=== PATIENT | male | born 1990 | race Caucasian/White ===

== ENCOUNTER 2016-12-19 18:12 | Emergency (ER) | payer MEDICAID, OTHER ==
[2016-12-19 18:32] VITALS: BP 127/76
[2016-12-19] MEDS ORDERED: Tetan/Diph/Pertus SYR(Tdap)* 0.5 ML SYR(BOOSTRIX) use SYR IM ONE (19:03)
--- NOTE | 2016-12-19 19:19 | UC ---
Skin Complaint HPI - HPI Summary HPI Summary: 26 year old male with wrist injury . PUNCTURE WOUND LEFT WRIST AND ABRASION LEFT LOWER BACK LAST NIGHT APPROX 2:30 AM FROM WHAT MAY HAVE BEEN A NAIL WHILE CLIMBING UP A WALL. PT STATES HE WAS SUSPENDED FOR A TIME BY HIS LEFT WRIST WHEN IT WAS SNAGGED. LAST TETANUS 2009. He was drinking at the time and not sure if any nail still present. Now with wrist pain and swelling with redness. Pain in the wrist with movement. No numbness. No weakness. No wrist pain. [ End ] - History of Current Complaint Chief Complaint: UCWounds Time Seen by Provider: 12/19/16 18:51 Stated Complaint: PUNCTURE WOUND WRIST Hx Obtained From: Patient Onset/Duration: Sudden Onset Timing: Constant Onset Severity: Moderate Current Severity: Mild Location: Diffuse Character: Swelling, Redness Aggravating Factor(s): Nothing Alleviating Factor(s): Nothing Associated Signs & Symptoms: Positive: Negative Related History: Trauma - Allergy/Home Medications Allergies/Adverse Reactions: Allergies Allergy/AdvReac Type Severity Reaction Status Date / Time No Known Allergies Allergy Verified 12/19/16 18:32 Review of Systems Constitutional: Negative Skin: Negative, Other - redness and pain in the wrist and on the left lower back Eyes: Negative ENT: Negative Respiratory: Negative Cardiovascular: Negative Gastrointestinal: Negative Genitourinary: Negative Motor: Negative Neurovascular: Negative Musculoskeletal: Negative Neurological: Negative Psychological: Negative Is Patient Immunocompromised?: No All Other Systems Reviewed And Are Negative: Yes PMH/Surg Hx/FS Hx/Imm Hx Previously Healthy: Yes - Surgical History Surgical History: None - Family History Known Family History: Negative: Cardiac Disease - Social History Occupation: Employed Full-time Lives: With Family Alcohol Use: Weekly Substance Use Type: None Smoking Status (MU): Current Every Day Smoker Type: Cigarettes Amount Used/How Often: 1/2 PPD Length of Time of Smoking/Using Tobacco: 6 YRS Have You Smoked in the Last Year: Yes - Immunization History Most Recent Tetanus Shot: LAST TETANUS 2009 Physical Exam Triage Information Reviewed: Yes Appearance: Well-Appearing, No Pain Distress, Well-Nourished Vital Signs: Initial Vital Signs Temp 98.5 F 12/19/16 18:23 Pulse 104 12/19/16 18:23 Resp 18 12/19/16 18:23 BP 127/76 12/19/16 18:23 Pulse Ox 99 12/19/16 18:23 Vital Signs Reviewed: Yes Eye Exam: Normal ENT Exam: Normal Dental Exam: Normal Neck exam: Normal Neck: Positive: 1 Respiratory Exam: Normal Cardiovascular Exam: Normal Abdominal Exam: Normal Musculoskeletal Exam: Normal Musculoskeletal: Positive: ROM Limited @ - with left wrist flexion and extension reduced slightly, Other: - radial pulse brisk.. Negative: Strength Limited @, Edema @ Neurological Exam: Normal Psychological Exam: Normal Psychological: Positive: Age Appropriate Behavior Skin Exam: Normal Skin: Positive: significant lesion(s) - left lower abrasion back linear 1x5 cm superficial with scabbing, Other - left wrist with puncture wound with dried blood, ovular area about 2x2 cm with raised redness. peripheral pulses intact. cap refill < 3 sec. merchandise support associate strength normal. wrist exam WNL. no streaking or discharge. Course/Dx - Course Course Of Treatment: Discussed if the pain in wrist worsens or the redness spreads or develop any weakness in the wrist to go to the ED for urgent eval Tdap at this time. Abx to reduce infection concerns. f/u Ortho 1 day. We discussed setpic joint as well and he is aware if getting worse to go to ED - Diagnoses Provider Diagnoses: left wrist puncture wound with infection Discharge - Discharge Plan Condition: Good Disposition: HOME Prescriptions: Cephalexin CAP* [Keflex 500 CAP*] 500 mg PO TID #30 cap Patient Education Materials: Puncture Wound (ED), Cellulitis (ED) Referrals: Pernell Alvarez MD [Medical Doctor] - Additional Instructions: Please go to the ED if your redness spreads or the pain in the wrist worsens
--- NOTE | 2016-12-19 19:38 | RAD ---
Indication: Left wrist pain and puncture wound. 2 views of the left wrist demonstrates no fracture. No other bone or joint abnormality is identified. IMPRESSION: Unremarkable left wrist.
[2016-12-19] MEDS ORDERED: Cephalexin CAP* 500 MG PO ONE (19:42)
== END 2016-12-19 19:47 | disposition home or self-care (01) ==
LOC: UCCORT 18:12
DX: L29.9 Pruritus, unspecified (principal)
CPT/HCPCS: 90471; 90715; 99212; A9270-GY; G0463